=== PATIENT | female | born 1985 | race Caucasian/White ===

== ENCOUNTER → 2017-04-23 | Outpatient (CLI) | payer BC ==
[~2017-04-23] MED LIST: AEROCHAMBER1 DEV IH; ALBUTEROL2 PUFFS/17 IN; IRON TABLETS325 MG PO; PRENATAL PLUS1 TA1 PO; Tri-Sprintec 281 TAB PO
--- NOTE | 2017-04-23 17:00 | RADIOLOGY REPORT PS360 ---
US PREG COMP: INDICATION: 20 WEEK ANATOMICALSURVEY ORDERING PHYSICIAN: Amol Garsia MD PATIENT AGE: 31 years TECHNIQUE: ultrasound transabdominal scanning. COMPARISON: No previous relevant studies. FINDINGS: Single viable intrauterine gestation. Cephalic position. Placenta: Posterior placenta grade 1. The placenta is low lying. A definite previa is not apparent. Follow-up recommended for confirmation There is average amount fluid. The cervix appears satisfactory. Closed and measuring 3 cm in length. Complete survey performed and was unremarkable on the submitted images as in PACS. No discrete anomalies identified on survey imaging by technologist. Active fetus. Three-vessel cord with satisfactory umbilical cord insertion. 4- chamber heart noted. Survey of brain & ventricles. Face and neck survey unremarkable. Diaphragm and chest views unremarkable. Abdomen: Both kidneys noted and unremarkable. Stomach noted and satisfactory. Spine: Survey of the spine satisfactory with no anomalies identified nor imaged. Both arms and legs noted. Amniotic Fluid: Adequate. Maternal adnexa: No significant findings. Measurements: Average ultrasound age 19 weeks 4 days. Gestational Age 19 weeks 6 days. Estimated due date by ultrasound age 409/13/2017. Estimated weight 313 grams. 41st percentile BPD = 19 weeks 0 days OFD = 20 weeks 4 days HC = 19 weeks 2 days AC = 19 weeks 5 days FL = 20 weeks 1 day Heart Rate = 146 BPM Cerebellum = 20 weeks 0 days Humerus = 19 weeks 3 days HC/AC is 1.14. CI is 71%. FL/BPD is 76%. FL/AC is 23%. IMPRESSION: IMPRESSION: There is a single live intrauterine gestation in cephalic presentation with average ultrasound age of 19 weeks 4 days. Please see above for detail. No obvious anomalies. The placenta is posterior and low lying. Follow-up recommended to exclude marginal previa
== END ==
LOC: RAD 14:49
DX: Z36.0 Encounter for antenatal screening for chromosomal anomalies (principal)